=== PATIENT | female | born 1975 | race Caucasian/White ===

== ENCOUNTER 2022-03-15 21:46 | Emergency (ER) | payer OTHER | END 2022-03-15 22:42 | LOC: JP.ED 21:46 | DX: Z02.89 Encounter for other administrative examinations (principal); F10.920 Alcohol use, unspecified with intoxication, uncomplicated; Z88.8 Allergy status to other drugs, medicaments and biological substances; Z86.16 Personal history of COVID-19 | CPT/HCPCS: 99282 ==